=== PATIENT | male | born 1975 | race Caucasian/White ===

== ENCOUNTER 2018-10-14 08:27 | Emergency (ER) | payer BC ==
--- OUTSIDE RECORDS SUMMARY | 2018-10-14 08:30 | XMS REPORT ---
:1975 [facility] Address [address] [place] [address] [address]. [address] [place] [address] Care Team Providers Name Role Phone LEON WESTON - Unavailable Unavailable Problems This patient has no known problems. Allergies, Adverse Reactions, Alerts This patient has no known allergies or adverse reactions. Medications This patient has no known medications. Encounters Start End Encounter Admission Attending Care Care Encounter Date/Time Date/Time Type Type Clinicians Facility Department ID 2016-08-20 2016-08-24 Inpatient 1 JOE WESTON TEL [id number] 23:05:00 21:00:00 MSONTHI Results Test Description Test Time Test Comments Text Results Atomic Results Result Comments EKG 2016-09-02 01:06:00 QRS Interval: 99msQT Interval: 369msQTC Interval: 418msP Garfield: 26degQRS Garfield: 57degT Wave Garfield: 38degP-R Interval: 139msecRR Interval: 779msecHeart Rate: 77bpmI 40 Garfield: 17degT 40 Garfield: 155degST Garfield: 47degEKG Severity: - NORMAL ECG -REPORT:Sinus rhythm IRVIN TALAVERA. REST/STRESS 2016-08-27 11:09:[address] [id number] IMAGING REPORTPatient Name: TEODORO RODRIGUEZ ADate of Service: [id number]: [id number] Sex: M Order #: [id number] Room: [facility]/ A 3SDOB: 1975 X-Ray Number: [id number] Record Number: [id number] Hospital Number: [id number] Physician: LEON WESTON -Ordering Physician: NEGRITO RICCI. REST/STRESSDICTATION DONE BY DR. ELIDA RICCI. ARMOR SENIOR SERGEANT DONE THROUGH MEDICALRECORDS.dfElectronically Signed By: Anel Saleh, 08/27/2016 11:07 AMLegally authenticated by NED Rosenbaum 2016-08-27 11:07:31 WHOLE BLOOD GLUCOSE 2016-08-24 16:56:00 Test Item Value Reference Range Comments WHOLE BLOOD GLUCOSE (test 204 mg/dL 70-99 Fasting glucose normal <100 MG/ DL- code=POC GLU) [employer] recommendation WHOLE BLOOD [id number] 16:21:00 Test Item Value Reference Range Comments WHOLE BLOOD GLUCOSE (test 29 mg/dL 70-99 Fasting glucose normal <100 code=POC GLU) MG/DL- [employer] recommendation BMP, BASIC METABOLIC [id number] 06:00:00 Test Item Value Reference Range Comments SODIUM (test code=NA) 139 MMOL/L 137-145 K+ (test code=KSERUM) 4.4 MMOL/L 3.5-5.1 PLEASE NOTE NEW REFERENCE RANGE(S) IN EFFECT EFFECTIVE 02/09/2010 - NEW ANALYZER ([employer] 5600) CHLORIDE (test code=CL) 101 MMOL/L 98-107 CO2 (test code=CO2) 31 MMOL/L 22-30 BUN (test code=BUN) 18 MG/DL 9-20 CREA (test code=CREA) 1.0 MG/DL 0.8-1.5 GLUCOSE (test 184 MG/DL 70-99 Fasting glucose normal code=GLUCOSE) <100 MG/DL- [employer] recommendation CALCIUM (test 9.6 MG/DL 8.4-10.2 code=CABLOOD) GFR (test code=GFR) 87 mL/min/1.73m2 A GFR of >90 mL/min/1.73m2 is considered normal. [id number] 05:40:00 Test Item Value Reference Range Comments WBC (test code=WBC) 8.1 K/UL 3.5-10.9 RBC (test code=RBC) 4.80 M/UL 4.3-5.7 HGB (test code=HGB) 14.7 G/DL 13.0-17.9 HCT (test code=HCT) 44.1 % 38-52 MCV (test code=MCV) 91.9 FL 80-98 MCH (test code=MCH) 30.6 PG 28-32 MCHC (test code=MCHC) 33.3 G/DL 32.5-36.5 RDW (test code=RDW) 13.0 % 11.5-14.5 PLT (test code=PLT) 271 K/UL 150-450 MPV (test code=MPV) 11.2 FL 7.4-10.4 MANDIFF (test code=MANDIFF) NO SCAN (test code=SCAN) NO NEUT% (test code=NEUT%) 43.4 % 40-75 LYMPH% (test code=LYMPH%) 43.1 % 24-44 MONO% (test code=MONO%) 11.2 % 0-13 EOS% (test code=EOS%) 1.7 % 0-4 BASO % (test code=BASO%) 0.5 % 0-2 IG% (test code=IG%) 0.1 % 0-1 IG%=Metamyelocytes, Myelocytes, and Promyelocytes. (Immature neutrophils not including "bands".) > 3% IG indicates risk of sepsis NRBC% (test code=NRBC%) 0 /100 WBC ABS NEUT (test code=NEUT) 3.5 K/UL 1.2-7.2 THYROID STIMULATION [id number] 17:33:00 Test Item Value Reference Range Comments TSH (test code=TSH) 2.23 UIU/ML 0.465-4.68 WHOLE BLOOD [id number] 06:46:00 Test Item Value Reference Range Comments WHOLE BLOOD GLUCOSE (test 200 mg/dL 70-99 Fasting glucose normal <100 code=POC GLU) MG/DL- [employer] recommendation WHOLE BLOOD [id number] 05:06:00 Test Item Value Reference Range Comments WHOLE BLOOD GLUCOSE (test 53 mg/dL 70-99 Fasting glucose normal <100 code=POC GLU) MG/DL- [employer] recommendation WHOLE BLOOD [id number] 04:42:00 Test Item Value Reference Range Comments WHOLE BLOOD GLUCOSE (test 73 mg/dL 70-99 Fasting glucose normal <100 code=POC GLU) MG/DL- [employer] recommendation WHOLE BLOOD [id number] 04:41:00 Test Item Value Reference Range Comments WHOLE BLOOD GLUCOSE (test 23 mg/dL 70-99 Fasting glucose normal <100 code=POC GLU) MG/DL- [employer] recommendation ECHO COMPLETE [id number] 17:31:00[facility] REPORTName: Edouard RODRIGUEZ Date : 08/22/2016 09:35 AMARN: [id number] Patient Location: 3S\\S\\323\\S\\: 1975 (M/d/yyyy)Gender: MaleAge: 41 yrs Ethnicity: WHeight: 73 in Weight: 280 lbBSA: 2.5 [id number] For Study: CHEST PAIN/NEAR SYNCOPE/PALPITATIONS/ ARRHYTHMIAHistory: DMProceduresA complete two-dimensional transthoracic echocardiogram was performed (2D,M-mode, Doppler and color flow Doppler).MMode/ 2D Measurements and CalculationsRVDd: 3.1 cm LVIDd: 5.4 cmIVSd: 1.1 cm LVIDs: 3.9 cmIVSs: 1.6 cm LVPWd: 1.0 cmLVPWs: 1.6 cm FS: 28.3 % % IVS thick: 44.0 %EDV(Teich): 143.7 mlESV(Teich): 65.8 mlEF(Teich): 54.2 % CO(Teich): 4.5 l/min EPSS: 0.59 cmSV(Teich): 77.9 ml MV excursion: 2.2 cmMV E-F slope: 17.0 cm/sec Ao root diam: 3.4 cm EDV (MOD-sp4): 111.0 mlAo root area: 8.8 cm ESV(MOD-sp4): 45.9 mlACS: 2.3 cm EF(MOD-sp4): 58.6 %LA dimension: 4.6 cm CO(MOD-sp4): 3.8 l/minSV(MOD-sp4): 65.1 mlTime MeasurementsMM R-R int: 1.0 secMM HR: 58.2 BPMDoppler Measurements and CalculationsMV E max helen: 108.0 cm/sec MV P1/2t max helen: 109.9 cm/secMV A max helen: 62.4 cm/sec MV P1/2t: 48.3 msecMV E/A: 1.7 MVA(P1/2t): 4.6 cmMV dec slope: 666.6 cm/secMV dec time: 0.17 sec Ao V2 max: 115.1 cm/sec MR max helen: 312.7 cm/secAo max P.3 mmHg MR max P.1 mmHg___ TR max P.5 mmHg RAP systole: 10.0 mmHgRVSP(TR): 28.5 mmHgLeft VentricleThe left ventricle is grossly normal size. Left ventricular systolicfunction is normal. Ejection Fraction=55-60%. The transmitral spectralDoppler flow pattern is suggestive of pseudonormalization. The leftventricular wall motion is normal.Right VentricleThe right ventricle is grossly normal size.AtriaThe left atrium is mildly dilated. Right atrial size is normal.Mitral ValveThe mitral valve is grossly normal. There is mild mitral regurgitation.Tricuspid ValveThe tricuspid valve is not well visualized, but is grossly normal. Rightventricular systolic pressure is normal. There is mild tricuspidregurgitation.Aortic ValveThe aortic valve is normal in structure and function.Great VesselsThe aortic root is normal size.Interpretation SummaryLeft ventricular systolic function is normal.Ejection Fraction=55-60%.The transmitral spectral Doppler flow pattern is suggestive ofpseudonormalization.Right ventricular systolic pressure isnormal.There is mild tricuspid regurgitation. Kenton Sandhu MD 2016Reading Physician: Electronically signed by:05:31 PMOrdering Physician: Kenton Sandhu MDReferring Physician: TUCKER WSETONerformed By: Adeola CastañedaOLE BLOOD [id number] 12:17:00 Test Item Value Reference Range Comments WHOLE BLOOD GLUCOSE (test 291 mg/dL 70-99 Fasting glucose normal <100 code=POC GLU) MG/DL- [employer] recommendation WHOLE BLOOD [id number] 08:02:00 Test Item Value Reference Range Comments WHOLE BLOOD GLUCOSE (test 121 mg/dL 70-99 Fasting glucose normal <100 code=POC GLU) MG/DL- [employer] recommendation [id number] 06:16:00 Test Item Value Reference Range Comments WBC (test code=WBC) 8.5 K/UL 3.5-10.9 RBC (test code=RBC) 4.64 M/UL 4.3-5.7 HGB (test code=HGB) 14.3 G/DL 13.0-17.9 HCT (test code=HCT) 42.9 % 38-52 MCV (test code=MCV) 92.5 FL 80-98 MCH (test code=MCH) 30.8 PG 28-32 MCHC (test code=MCHC) 33.3 G/DL 32.5-36.5 RDW (test code=RDW) 13.1 % 11.5-14.5 PLT (test code=PLT) 251 K/UL 150-450 MPV (test code=MPV) 11.2 FL 7.4-10.4 MANDIFF (test code=MANDIFF) NO SCAN (test code=SCAN) NO NEUT% (test code=NEUT%) 47.3 % 40-75 LYMPH% (test code=LYMPH%) 42.0 % 24-44 MONO% (test code=MONO%) 8.6 % 0-13 EOS% (test code=EOS%) 1.4 % 0-4 BASO % (test code=BASO%) 0.5 % 0-2 IG% (test code=IG%) 0.2 % 0-1 IG%=Metamyelocytes, Myelocytes, and Promyelocytes. (Immature neutrophils not including "bands".) > 3% IG indicates risk of sepsis NRBC% (test code=NRBC%) 0 /100 WBC ABS NEUT (test code=NEUT) 4.0 K/UL 1.2-7.2 TROPONIN I - [id number] 05:18:00 Test Item Value Reference Range Comments TROP-I (test <0.012 ng/ml 0.012-0.033 INTERPRETIVE code=TROP-I) DATA A TROPONIN OF LESS THAN 0.034 NG/ML IS CONSIDERED NEGATIVE A TROPONIN OF 0.034 - 0.119 NG/ML IS CONSIDERED GRAYZONE A TROPONIN=/> 0.120 NG/ML IS CONSIDERED POSITIVE PROBRAIN NATRIURETIC [id number] 05:18:00 Test Item Value Reference Range Comments NT-PROBNP (test code=PROBNP) 37 pg/mL Exclusion for heart failure for patients of all ages is 300 pg/mL. Inclusion for heart failure for patients age <50 is 450 pg/mL; for patients age 50-75 is 900 pg/mL; for patients age >75 is 1800 pg/mL. BMP, BASIC METABOLIC [id number] 05:13:00 Test Item Value Reference Range Comments SODIUM (test code=NA) 139 MMOL/L 137-145 K+ (test code=KSERUM) 4.0 MMOL/L 3.5-5.1 PLEASE NOTE NEW REFERENCE RANGE(S) IN EFFECT EFFECTIVE 02/09/2010 - NEW ANALYZER ([employer] 5600) CHLORIDE (test code=CL) 105 MMOL/L 98-107 CO2 (test code=CO2) 27 MMOL/L 22-30 BUN (test code=BUN) 15 MG/DL 9-20 CREA (test code=CREA) 0.7 MG/DL 0.8-1.5 GLUCOSE (test 218 MG/DL 70-99 Fasting glucose normal code=GLUCOSE) <100 MG/DL- [employer] recommendation CALCIUM (test 9.3 MG/DL 8.4-10.2 code=CABLOOD) GFR (test code=GFR) 131 mL/min/1.73m2 A GFR of >90 mL/min/1.73m2 is considered normal. [id number] 05:13:00 Test Item Value Reference Range Comments MG (test code=MG) 1.9 mg/dL 1.6-2.3 LIPID [id number] 05:13:00 Test Item Value Reference Range Comments CHOLEST (test code=CHOLEST) 151 MG/DL 0-200 TRIGLYCE (test code=TRIGLYCE) 106 MG/DL 0-150 HDL (test code=HDL) 38 MG/DL 30-65 NEGATIVE RISK FACTOR FOR HEART DISEASE IF HDL >/=60 mg/dl MAJOR RISK FACTOR FOR HEART DISEASE IF HDL <40 mg/dL CALC LDL (test code=CALC LDL) 92 MG/DL <100 DIRECT [id number] 05:13:00 Test Item Value Reference Range Comments DIR LDL (test code=LDL) 98 MG/DL 0-<100 [id number] 04:57:00 Test Item Value Reference Range Comments %CKMB (test code=%MB) 0.1 % CKMB (test code=CKMB) 0.8 NG/ML 0.22-2.4 CK (test code=CK) 705 U/L 55-170 CKINTERP (test code=CKINTERP) NEGATIVE Negative TROPONIN I - [id number] 23:35:00 Test Item Value Reference Range Comments TROP-I (test <0.012 ng/ml 0.012-0.033 INTERPRETIVE code=TROP-I) DATA A TROPONIN OF LESS THAN 0.034 NG/ML IS CONSIDERED NEGATIVE A TROPONIN OF 0.034 - 0.119 NG/ML IS CONSIDERED GRAYZONE A TROPONIN=/> 0.120 NG/ML IS CONSIDERED POSITIVE [id number] 23:35:00 Test Item Value Reference Range Comments %CKMB (test code=%MB) 0.1 % CKMB (test code=CKMB) 0.8 NG/ML 0.22-2.4 CK (test code=CK) 796 U/L 55-170 CKINTERP (test code=CKINTERP) NEGATIVE Negative URINE DRUG [id number] 18:35:00 Test Item Value Reference Range Comments AMPHET (test code=BAMP) NEGATIVE NEGATIVE This is an unconfirmed screening. Result are to be used for medical purposes (treatment) only. Not intended for non-medical purposes. Cut-off concentration for a positive result for each drug: Amphetamine - 1,000 ng/ml Barbiturate - 200 ng/ml Benzodiazepine - 200 ng/ml Cannabinoids - 50 ng/ml Cocaine - 300 ng/ml Opiates - 300 ng/ml PCP - 25 ng/ml BARBITURATES (test code=BBAR) NEGATIVE NEGATIVE BENZO (test code=BBENZ) NEGATIVE NEGATIVE CANNABS (test code=BCANN) NEGATIVE NEGATIVE COCAINE (test code=BCOC) NEGATIVE NEGATIVE OPIATES (test code=BOPI) NEGATIVE NEGATIVE PCP (test code=BMTPCP) NEGATIVE NEGATIVE WHOLE BLOOD [id number] 17:09:00 Test Item Value Reference Range Comments WHOLE BLOOD GLUCOSE (test 194 mg/dL 70-99 Fasting glucose normal <100 code=POC GLU) MG/DL- [employer] recommendation TROPONIN [id number] 16:49:00 Test Item Value Reference Range Comments TROPER (test code=TROPER) 0.01 ng/ml 0.0-0.08 INTERPRETIVE DATA A POC TROPONIN OF </=0.08 NG/ML IS CONSIDERED NEGATIVE NEW TEST OF 06-24-2012iSTAT PROTHROMBIN TIME WITH [id number] 16:48:00 Test Item Value Reference Range Comments PROTHROMBIN TIME (test 12.9 SECONDS 12.0-14.6 INR Usual Range=2 to 3 for code=PT) prevention of deep vein thrombosis (DVT) INR (test code=INR) 0.9 [id number] 16:48:00 Test Item Value Reference Range Comments PTT (test code=PTT) 27.3 SECONDS 24.4-36.3 HEPARIN THERAPEUTIC RANGE 57-92 SECONDS [id number] 16:47:00 Test Item Value Reference Range Comments %CKMB (test code=%MB) 0.1 % CKMB (test code=CKMB) 1.0 NG/ML 0.22-2.4 CK (test code=CK) 968 U/L 55-170 CKINTERP (test code=CKINTERP) NEGATIVE Negative PROBRAIN NATRIURETIC [id number] 16:47:00 Test Item Value Reference Range Comments NT-PROBNP (test code=PROBNP) 35 pg/mL Exclusion for heart failure for patients of all ages is 300 pg/mL. Inclusion for heart failure for patients age <50 is 450 pg/mL; for patients age 50-75 is 900 pg/mL; for patients age >75 is 1800 pg/mL. BMP, BASIC METABOLIC [id number] 16:47:00 Test Item Value Reference Range Comments SODIUM (test code=NA) 136 MMOL/L 137-145 K+ (test code=KSERUM) 4.0 MMOL/L 3.5-5.1 PLEASE NOTE NEW REFERENCE RANGE(S) IN EFFECT EFFECTIVE 02/09/2010 - NEW ANALYZER ([employer] 5600) CHLORIDE (test code=CL) 102 MMOL/L 98-107 CO2 (test code=CO2) 24 MMOL/L 22-30 BUN (test code=BUN) 12 MG/DL 9-20 CREA (test code=CREA) 0.7 MG/DL 0.8-1.5 GLUCOSE (test 203 MG/DL 70-99 Fasting glucose normal code=GLUCOSE) <100 MG/DL- [employer] recommendation CALCIUM (test 9.3 MG/DL 8.4-10.2 code=CABLOOD) GFR (test code=GFR) 131 mL/min/1.73m2 A GFR of >90 mL/min/1.73m2 is considered normal. CHEST 1 VIEW [id number] 16:39:[address] [address]SOMZWHZKGE IMAGING REPORTPatient Name : TEODORO RODRIGUEZ ADate of Service: [id number]: 41 Sex: M Order #: [id number] Room: ERSDOB: 1975 X-Ray Number: [id number] Record Number: [id number] Hospital Number: [id number] Physician: LEONOR RAIN TANOrdering Physician: YULIA DOWNING -Chest.1632 hoursHistory: Chest pain, shortness of breath.Comparison: May 18, 2013.Technique: Single AP chest projection.Findings: Single chest projection demonstrates normal heart size and clearlungs. No infiltrates or abnormalities are depicted. The osseous structuresappear intact.Impression:No acute-appearing cardiopulmonary abnormalities.Electronically Signed By: Dorian Higuera M.D., 08/20/2016 4:37 PMLegally authenticated by LIZET Jeong 2016-08-20 16:37:[id number] 16 :24:00 Test Item Value Reference Range Comments WBC (test code=WBC) 10.6 K/UL 3.5-10.9 RBC (test code=RBC) 4.84 M/UL 4.3-5.7 HGB (test code=HGB) 14.8 G/DL 13.0-17.9 HCT (test code=HCT) 44.3 % 38-52 MCV (test code=MCV) 91.5 FL 80-98 MCH (test code=MCH) 30.6 PG 28-32 MCHC (test code=MCHC) 33.4 G/DL 32.5-36.5 RDW (test code=RDW) 12.9 % 11.5-14.5 PLT (test code=PLT) 282 K/UL 150-450 MPV (test code=MPV) 10.3 FL 7.4-10.4 MANDIFF (test code=MANDIFF) NO SCAN (test code=SCAN) NO NEUT% (test code=NEUT%) 67.5 % 40-75 LYMPH% (test code=LYMPH%) 23.3 % 24-44 MONO% (test code=MONO%) 8.0 % 0-13 EOS% (test code=EOS%) 0.6 % 0-4 BASO % (test code=BASO%) 0.4 % 0-2 IG% (test code=IG%) 0.2 % 0-1 IG%=Metamyelocytes, Myelocytes, and Promyelocytes. (Immature neutrophils not including "bands".) > 3% IG indicates risk of sepsis NRBC% (test code=NRBC%) 0 /100 WBC ABS NEUT (test code=NEUT) 7.2 K/UL 1.2-7.2
[2018-10-14 09:12] LABS: Absolute Lymphocytes (CBC) 1.4 K/uL (0.7-4.9); Absolute Monocytes 0.7 K/uL (0.1-1.3); Absolute Neutrophil 5.9 K/uL (1.8-8.0); Basophils % 0.6 % (0-1.3); Hematocrit 54.2 % (39.6-49.0); Lymphocytes % 17.6 % (15.3-44.8); RBC Red Blood Cell Count 5.78 M/uL (4.33-5.43)
[2018-10-14 09:31] LABS: Albumin 3.7 g/dL (3.4-5.0); Bilirubin Direct 0.1 mg/dL (0-0.2); Bilirubin Total 0.4 mg/dL (0.2-1.0); Potassium 4.2 mmol/L (3.5-5.1); Protein, Total 7.1 g/dL (6.4-8.2)
[2018-10-14 09:45] LABS: Urine Blood NEGATIVE (NEG); Urine Glucose 2+ (NEG); Urine Protein NEGATIVE (NEG); Urine Specific Gravity 1.015 (1.005-1.030); Urine pH 7.5 (5.0-7.0)
--- NOTE | 2018-10-14 11:07 | RAD REPORT ---
EXAM DESCRIPTION: CTAbdomen Pelvis W Contrast - 10/14/2018 10:50 am CLINICAL HISTORY: Abdominal pain. RLQ PAIN COMPARISON: No comparisons TECHNIQUE: Biphasic CT imaging of the abdomen and pelvis was performed with 100 ml non-ionic IV cont rast. All CT scans are performed using dose optimization technique as appropriate and may include automated exposure control or mA/KV adjustment according to patient size. FINDINGS: The lung bases are clear. The liver, spleen, pancreas, adrenal glands and kidneys are within normal limits. No bowel obstruction, free air, free fluid or abscess. The appendix is normal. No evidence of signi ficant lymphadenopathy. No suspicious bony findings. IMPRESSION: No acute intra-abdominal or pelvic finding.
--- NOTE | 2018-10-14 11:12 | EDPHYS ---
Physician Documentation [facility] Name: Esequiel Ibarra Age: 43 yrs Sex: Male : 1975 Arrival Date: 10/14/2018 Time: 08:28 Bed 14 Private MD: ED Physician Yves Oconnell HPI: 10/14 09:54 This 43 yrs old Male presents to ER via Ambulatory with complaints of rn Abdominal Pain. 09:54 The patient presents with abdominal pain right lower quadrant. Onset: The rn symptoms/episode began/occurred 4 day(s) ago. The symptoms do not radiate. Associated signs and symptoms: none. Pertinent negatives: nausea and vomiting, anorexia, blood in stools, fever, shortness of breath, testicular pain. Modifying factors: The symptoms are alleviated by nothing, the symptoms are aggravated by touching the area. Severity of pain: At its worst the pain was moderate in the emergency department the pain is unchanged. The patient has not experienced similar symptoms in the past. The patient has been recently seen by a physician:. Reports had negative ct with IV contrast a few days ago at outside ER, seen by PCP today for persistent abd pain, told to come here for ct with oral and IV contrast. Patient reports sensitivity of skin with shirt contact and deep pain as well. . Historical: - Allergies: 08:34 No Known Allergies; aa5 - PMHx: 08:34 Diabetes Type 1; aa5 - PSHx: 08:34 hand; Knee surgery; aa5 - Immunization history:: Adult Immunizations unknown. - Social history:: Smoking status: Patient/guardian denies using tobacco. - Ebola Screening: : No symptoms or risks identified at this time. - Family history:: not pertinent. - Hospitalizations: : No recent hospitalization is reported. ROS: 09:54 Constitutional: Negative for fever, chills, and weight loss, Eyes: Negative for injury, rn pain, redness, and discharge, Cardiovascular: Negative for chest pain, palpitations, and edema, Respiratory: Negative for shortness of breath, cough, wheezing, and pleuritic chest pain, Abdomen/GI: + abdominal pain, negative for nausea/vomiting/diarrhea MS/Extremity: Negative for injury and deformity, Skin: Negative for injury, rash, and discoloration, Neuro: Negative for headache, weakness, numbness, tingling, and seizure. Exam: 09:54 Constitutional: This is a well developed, well nourished patient who is awake, alert, rn and in no acute distress. Head/Face: Normocephalic, atraumatic. ENT: MMM Abdomen/GI: soft, + tenderness RLQ with guarding, no rebound, no masses Back: NO spinal tenderness. No rash of flank. Skin: Warm, dry MS/ Extremity: Pulses equal, no cyanosis. Neurovascular intact. Full, normal range of motion. Equal circumference. Neuro: Awake and alert, GCS 15 Vital Signs: 08:34 BP 155 / 98; Pulse 105; Resp 18 S; Temp 98.0(TE); Pulse Ox 98% on R/A; Weight 113.4 kg aa5 (R); Height 6 ft. 3 in. (190.50 cm) (R); Pain 5/10; 09:26 BP 136 / 84; Pulse 86; Resp 17; Pulse Ox 96% on R/A; tw2 10:28 BP 128 / 80; Pulse 80; Resp 16; Pulse Ox 100% on R/A; iw 11:17 BP 128 / 81; Pulse 79; Resp 17; Pulse Ox 96% on R/A; tw2 08:34 Body Mass Index 31.25 (113.40 kg, 190.50 cm) aa5 MDM: 08:35 Patient medically screened. rn 11:09 Differential diagnosis: appendicitis, non-specific abd pain, zoster. Data reviewed: rn vital signs, nurses notes, lab test result(s), radiologic studies, CT scan, and as a result, I will discharge patient. Counseling: I had a detailed discussion with the patient and/or guardian regarding: the historical points, exam findings, and any diagnostic results supporting the discharge/admit diagnosis, lab results, radiology results, the need for outpatient follow up, to return to the emergency department if symptoms worsen or persist or if there are any questions or concerns that arise at home. Special discussion: I discussed with the patient/guardian in detail that at this point there is no indication for admission to the hospital. It is understood, however, that if the symptoms persist or worsen the patient needs to return immediately for re-evaluation. [address] abdomen, normal blood work, possibly shingles given skin sensitivity and has had shingles before. Will treat with anti-viral and steroids. . 10/14 08:53 Order name: Basic Metabolic Panel; Complete Time: 10:04 rn 10/14 08:53 Order name: CBC with Diff; Complete Time: 10:04 rn 10/14 08:53 Order name: Hepatic Function; Complete Time: 10:04 rn 10/14 08:53 Order name: Lipase; Complete Time: 10:04 rn 10/14 08:53 Order name: CT Abd/Pelvis - W/Contrast; Complete Time: 11: rn 10/14 09:21 Order name: Urine Dipstick--Ancillary (enter results); Complete Time: 10:04 bd 10/14 08:53 Order name: IV Saline Lock; Complete Time: 09: rn 10/14 08:53 Order name: Labs collected and sent; Complete Time: 09: rn 10/14 08:53 Order name: Urine Dipstick-Ancillary (obtain specimen); Complete Time: 09:08 rn Administered Medications: No medications were administered Disposition: 10/14/18 11:11 Discharged to Home. Impression: Zoster [herpes zoster], Unspecified abdominal pain. - Condition is Stable. - Discharge Instructions: Abdominal Pain, Adult. - Prescriptions for Valtrex 1 g Oral Tablet - take 1 tablet by ORAL route every 8 hours for 7 days; 21 tablet. Medrol (Demian) 4 mg Oral Tablets, Dose Pack - take 1 tablet by ORAL route as directed - follow package instructions; 1 packet. - Medication Reconciliation Form, Thank You Letter, Antibiotic Education, Prescription Opioid Use, Work release form form. - Follow up: Private Physician; When: As needed; Reason: Recheck today's complaints, Re-evaluation by your physician. - Problem is an ongoing problem. - Symptoms have improved. Signatures: Dispatcher [employer] EDDC Yves Oconnell MD MD rn Calderon, Audri RN RN aa5 Yessica Barnett RN RN tw2 Corrections: (The following items were deleted from the chart) 11:19 11:11 10/14/2018 11:11 Discharged to Home. Impression: Zoster [herpes zoster]; tw2 Unspecified abdominal pain. Condition is Stable. Forms are Medication Reconciliation Form, Thank You Letter, Antibiotic Education, Prescription Opioid Use. Follow up: Private Physician; When: As needed; Reason: Recheck today's complaints, Re-evaluation by your physician. Problem is an ongoing problem. Symptoms have improved. rn
--- NOTE | 2018-10-14 11:12 | ER ---
Nurse's Notes [facility] Name: Esequiel Ibarra Age: 43 yrs Sex: Male : 1975 Arrival Date: 10/14/2018 Time: 08:28 Bed 14 Private MD: Diagnosis: Zoster [herpes zoster];Unspecified abdominal pain Presentation: 10/14 08:32 Presenting complaint: Patient states: Pain to right side of abdomen radiating to right aa5 flank that began 4 days ago. Pt states "I went to [facility] back home and they did a CT scan but I just saw my doctor and he said to come here and get a real CT with the drink". Transition of care: patient was not received from another setting of care. Onset of symptoms was October 2018. Risk Assessment: Do you want to hurt yourself or someone else? Patient reports no desire to harm self or others. Initial Sepsis Screen: Does the patient meet any 2 criteria? No. Patient's initial sepsis screen is negative. Does the patient have a suspected source of infection? No. Patient's initial sepsis screen is negative. Care prior to arrival: None. 08:32 Method Of Arrival: Ambulatory aa5 08:32 Acuity: VERONA 3 aa5 Historical: - Allergies: 08:34 No Known Allergies; aa5 - PMHx: 08:34 Diabetes Type 1; aa5 - PSHx: 08:34 hand; Knee surgery; aa5 - Immunization history:: Adult Immunizations unknown. - Social history:: Smoking status: Patient/guardian denies using tobacco. - Ebola Screening: : No symptoms or risks identified at this time. - Family history:: not pertinent. - Hospitalizations: : No recent hospitalization is reported. Screenin:41 Abuse screen: Denies threats or abuse. Nutritional screening: No deficits noted. tw2 Tuberculosis screening: No symptoms or risk factors identified. Fall Risk None identified. Assessment: 08:47 General: Appears in no apparent distress. Behavior is calm, cooperative, appropriate tw2 for age. Pain: Complains of pain in right upper quadrant and right lower quadrant Pain radiates to back. Neuro: Level of Consciousness is awake, alert, obeys commands, Oriented to person, place, time, situation. Cardiovascular: Heart tones S1 S2 Patient's skin is warm and dry. Respiratory: Airway is patent Respiratory effort is even, unlabored, Respiratory pattern is regular, symmetrical, Breath sounds are clear bilaterally. GI: Bowel sounds present X 4 quads. Abd is soft X 4 quads Reports lower abdominal pain, nausea. : No signs and/or symptoms were reported regarding the genitourinary system. EENT: No signs and/or symptoms were reported regarding the EENT system. Derm: No signs and/or symptoms reported regarding the dermatologic system. Musculoskeletal: Circulation, motion, and sensation intact. Range of motion: intact in all extremities. 09:27 Reassessment: Patient appears in no apparent distress at this time. No changes from tw2 previously documented assessment. Patient and/or family updated on plan of care and expected duration. Pain level reassessed. Patient is alert, oriented x 3, equal unlabored respirations, skin warm/dry/pink. 10:27 Reassessment: Patient appears in no apparent distress at this time. No changes from tw2 previously documented assessment. Patient and/or family updated on plan of care and expected duration. Pain level reassessed. Patient is alert, oriented x 3, equal unlabored respirations, skin warm/dry/pink. 11:17 Reassessment: Patient appears in no apparent distress at this time. No changes from tw2 previously documented assessment. Patient and/or family updated on plan of care and expected duration. Pain level reassessed. Patient is alert, oriented x 3, equal unlabored respirations, skin warm/dry/pink. Vital Signs: 08:34 BP 155 / 98; Pulse 105; Resp 18 S; Temp 98.0(TE); Pulse Ox 98% on R/A; Weight 113.4 kg aa5 (R); Height 6 ft. 3 in. (190.50 cm) (R); Pain 5/10; 09:26 BP 136 / 84; Pulse 86; Resp 17; Pulse Ox 96% on R/A; tw2 10:28 BP 128 / 80; Pulse 80; Resp 16; Pulse Ox 100% on R/A; iw 11:17 BP 128 / 81; Pulse 79; Resp 17; Pulse Ox 96% on R/A; tw2 08:34 Body Mass Index 31.25 (113.40 kg, 190.50 cm) aa5 ED Course: 08:28 Patient arrived in ED. rg4 08:32 Arm band placed on. aa5 08:33 Triage completed. aa5 08:35 Yves Oconnell MD is Attending Physician. rn 08:41 Yessica Barnett, LAVERNE is Primary Nurse. tw2 08:41 Bed in low position. Call light in reach. Pulse ox on. NIBP on. tw2 09:08 Inserted saline lock: 20 gauge in left antecubital area, using aseptic technique. Blood tw2 collected. 10:45 CT completed. Patient tolerated procedure well. Patient moved to CT via wheelchair. jg6 Patient moved back from CT. 10:50 CT Abd/Pelvis - W/Contrast In Process Unspecified. EDMS 11:18 No provider procedures requiring assistance completed. IV discontinued, intact, tw2 bleeding controlled, No redness/swelling at site. Pressure dressing applied. Administered Medications: No medications were administered Outcome: 11:11 Discharge ordered by . rn 11:18 Discharged to home ambulatory. tw2 11:18 Condition: stable 11:18 Discharge instructions given to patient, Instructed on discharge instructions, the need for admit, medication usage, Demonstrated understanding of instructions, follow-up care, medications, Prescriptions given X 2. 11:19 Patient left the ED. tw2 Signatures: Dispatcher [employer] EDMS Velvet Saunders RN RN iw Yves Oconnell MD MD rn Calderon, Audri RN RN aa5 Yessica Barnett RN RN tw2 Elba Dhillon Jessica jg6 Corrections: (The following items were deleted from the chart) 08:36 08:34 BP 155 / 98; Pulse 105bpm; Resp 18bpm; Spontaneous; Pulse Ox 98% RA; Temp 98.0F aa5 Temporal; 113.4 kg Reported; aa5 11:13 10:28 BP 128 / 80; Pulse 80bpm; Resp 1bpm; Pulse Ox 100% RA; tw2 iw
== END 2018-10-14 11:19 | disposition home or self-care (01) ==
LOC: ER 08:27
DX: B02.9 Zoster without complications (principal); E10.9 Type 1 diabetes mellitus without complications
CPT/HCPCS: 36415; 74177; 80048; 80076; 81003; 83690; 85025; 99284; Q9967